=== PATIENT | male | born 1980 | race Caucasian/White ===

== ENCOUNTER → 2018-12-17 | Outpatient (CLI) | payer OTHER ==
[2018-12-18 00:43] LABS: C Reactive Protein 1.4 mg/dL (0.0-0.8); Uric Acid 6.4 mg/dL (3.7-8.7)
== END | disposition home or self-care (01) ==
LOC: LABWHC1 17:08
PROVIDERS: ATTEND Orthopaedic Surgery
DX: M79.671 Pain in right foot (principal); M77.41 Metatarsalgia, right foot; M25.531 Pain in right wrist; M19.131 Post-traumatic osteoarthritis, right wrist
CPT/HCPCS: 36415; 84550; 85652; 86140

== ENCOUNTER → 2018-12-28 | Outpatient (CLI) | payer OTHER ==
--- NOTE | 2018-12-30 21:50 | MR ---
EXAMINATION TYPE: MR foot RT wo con DATE OF EXAM: 12/28/2018 COMPARISON: No radiographic correlation available HISTORY: 38-year-old male right foot pain, metatarsalgia, Middle toe on rt foot swollen/red, no known injury TECHNIQUE: Multiplanar, multisequence images of the right forefoot and midfoot were obtained without IV contrast. FINDINGS: There is generalized soft tissue swelling involving the third toe. No osseous edema or suspicious bon e marrow replacement. No joint effusion or capsular swelling is seen. There is some thickening along the flexor tendon with corresponding surrounding tenosynovial fluid. Lisfranc ligament is visualized intact. Subtalar joint is aligned. Small delineation to the Achilles tendon. IMPRESSION: Generalized soft tissue swelling of the third toe with associated flexor tenosynovitis. Correlate for possible traumatic or infectious etiologies. Inflammatory etiology such as gout could also be consid ered. No underlying osseous abnormality seen.
== END | disposition home or self-care (01) ==
LOC: RADMRIMAIN 18:33
PROVIDERS: ATTEND Orthopaedic Surgery
DX: M65.871 Other synovitis and tenosynovitis, right ankle and foot (principal); M79.89 Other specified soft tissue disorders; M19.131 Post-traumatic osteoarthritis, right wrist

== ENCOUNTER → 2019-08-02 | Outpatient (CLI) | payer OTHER ==
--- NOTE | 2019-08-02 11:57 | XR ---
EXAMINATION TYPE: XR chest 2V DATE OF EXAM: 08/02/2019 COMPARISON: NONE HISTORY: Chest pain TECHNIQUE: Frontal and lateral views of the chest are obtained. FINDINGS: There is no focal air space opacity. No evidence for pneumothorax. No pleural effusion. The cardiac silhouette size is within normal limits. The osseous structures are grossly intact. IMPRESSION: 1. No acute cardiopulmonary process.
== END | disposition home or self-care (01) ==
LOC: RADXRMAIN 11:15
PROVIDERS: ATTEND Family Medicine
DX: R05 Cough (principal)
CPT/HCPCS: 71046